=== PATIENT | male | born 1990 | race Caucasian/White ===

== ENCOUNTER → 2021-08-20 09:27 | Outpatient (CLI) | payer OTHER, SELFPAY ==
[2021-08-20 12:00] LABS: COVID19 -Nasal RAPID Negative (Negative)
== END ==
PROVIDERS: PCP Emergency Medicine; Visit Provider Nurse Practitioner Family
DX: Z20.822 Contact with and (suspected) exposure to COVID-19 (principal); Z01.812 Encounter for preprocedural laboratory examination
CPT/HCPCS: 87635

== ENCOUNTER 2021-08-22 10:36 | Day surgery (SDC) | payer OTHER, SELFPAY ==
[2021-08-15 13:44] VITALS: BMI 28.7
[2021-08-22] VITALS (13 sets, daily range): BP systolic 113–149; BP diastolic 62–104; PULSE 82–107; RESP 10–18; TEMP 36.3–38; O2SAT 95–98; BMI 28.7
--- NOTE | 2021-08-22 | DI.RAD.S_ITS ---
PROCEDURE: XR LUMBAR SPINE 2-3V INDICATIONS: L5-S1 TLIF TECHNIQUE: Two intraoperative fluoroscopic spot views of the lumbar spine were acquired. COMPARISON: [facility], , L-SPINE 2-3 VIEWS, 09/07/2015, 15:33. FINDINGS: Bilateral transpedicular screws and disc spacer are in place at the L5-S1 level. AP and transverse alignment appear normal. IMPRESSION: 1. Expected fluoroscopic appearance of L5-S1 TLIF. Dictated by: Erum Floyd M.D. on 08/22/2021 at 15:14 Approved by: Erum Floyd M.D. on 08/22/2021 at 15:16
[2021-08-22] MEDS: LACTATED RINGERS 1,000 ML 42 ML IV ×2 (11:23→12:57)
--- NOTE | 2021-08-22 11:46 | PM.PREOP ---
Pre-operative Note COVID-19 COVID-19 status: Negative Result date/Date tested (Pos, Neg/Pending): 08/20/21 Interval Note History & Physical reviewed/Exam performed by Physician: Yes Changes to H&P: No
[2021-08-22] MEDS: CEFAZOLIN 1 GM VIAL 2 GM IV ×2 (12:30→21:18)
--- NOTE | 2021-08-22 12:54 | SUR.OPER ---
Prone on spine table, head in foam head support, padded chest and pelvic supports, gel pad at knees, lower legs supported by pillows; nipples, genitalia and toes free of pressure, arms secured on foam padded arm boards at <90 degrees abduction. Tape over blanket at thigh secured to table.
[2021-08-22] MEDS: BUPIVACAINE 0.25% (PF) 30 ML, EPINEPHrine 0.3 MG INJ (12:58)
[2021-08-22] MEDS: BUPIVACAINE LIPOSOME 266 MG/20 ML VIAL INJ (12:59)
--- NOTE | 2021-08-22 15:20 | PM.OP.1 ---
Operative Date/Time/Diagnoses Date of procedure: 08/22/21 Time of procedure: 12:20 Pre-op diagnosis: 1. L5-S1 recurrent disc herniation with radiculopathy 2. L5-S1 spinal stenosis with radiculopathy Post-op diagnosis: same Procedure & Clinicians Procedure: 1. L5-S1 Postero-lateral and posterior interbody fusion 2. L5-S1 interbody cage placement. 3. L5-S1 decompressive laminectomy with bilateral facetecomies 4. L5-S1 Posterior non-segmental instrumentation 5. [place] of bone marrow from iliac crest 6. Utilization of microsurgical technique and operating microscope Same procedure as scheduled: Yes Indications: Patient has been having chronic back pain and worsening lumbar radiculopathy. Patient had prior L5-S1 right microdiskectomy has done well until recently. Patient has recurring radiculopathy secondary to a large recurrent disc herniation L5-S1 level. Patient failed multiple conservative management with worsening pain weakness and numbness in his lower extremity. Patient has been having difficulty performing activity of daily living. After discussing risks benefits of treatment options, patient elected proceed with surgery. Surgeon: Tisha Monreal Manager Clinical Pharmacy: Mere Watson Click Yes if Unassisted: No Anesthesia Type: General Operative Notes Closure Type: primary Specimen(s): none sent Prosthetic devices, grafts, tissues, transplants, or devices: Globus revolve screws, Rise cage Applied: implant(s) Estimated Blood Loss (mL): 50 Blood products transfused: none Procedure in detail: Patient was seen in the preoperative area. Risks and benefits of the surgery was discussed with the patient. Informed consent was obtained from the patient and placed in the chart. Surgical site was marked. Patient was taken to the operative room. General anesthesia was administered. Prophylactic antibiotic was given to the patient less than 30 min before the incision was made. Patient was placed into a prone position on the Stevenson table. Patient's back was then prepped and draped in the sterile fashion. Time-out was performed at this time. Using AP and lateral C-arm imaging the interval between L5-S1 was identified and marked on patient's back. A 2 inch incision 2 in from midline was made on the right side first. The fascia was incised in line with skin incision. Globus MARS retractors was placed inside the incision and docked onto the L5 lamina. Using microsurgical technique and operating microscope, a L5 laminectomy and L5-S1 facetectomy was performed using a [place] rongeur. Patient was found have severe neural foraminal stenosis and required a total facetectomy for decompression which rendered L5-S1 grossly unstable and required a fusion procedure at the same time. The disc space at L5-S1 was identified. And a total diskectomy was performed at L5-S1 level. Patient was found have a large recurrent disc herniation causing significant right-sided lateral recess/foraminal stenosis as well as significant central stenosis. The stenosis was fully decompressed after a total diskectomy was completed. The endplates were decorticated using a rasp and shaver. The total diskectomy and decortication was performed at L5-S1 level in order to to accomplish a L5-S1 fusion. The local bone from the laminectomy and facetectomy was saved for local bone grafting. After the total diskectomy and decortication was completed, Trifecta bone graft material was combined with local bone that was harvested earlier. At this time, a separate skin is incision was made over the iliac crest. A Jamshidi needle was inserted into the iliac crest through a separate skin incision. 5 cc of bone marrow aspiration was obtained through the separate skin incision using a Jamshidi needle from the iliac crest. The bone marrow aspiration was combined with local bone and the Trifecta bone grafting material. The bone grafting material was placed into the L5-S1 interbody space along with a expandable cage. The cage was expanded to its maximum height using the torque limiting screwdriver. At this time a mirror image incision was made on the left side. The fascia was incised in line with the skin incision. Globus MARS retractor was inserted and docked onto the L5-S1 posterolateral gutter. Using the power drill, posterior-lateral decortication was performed at L5-S1 level until bleeding cortical bone was identified. The remaining bone grafting material was placed into the L5-S1 posterior lateral gutter he order to accomplish posterolateral fusion at the L5-S1 level. Using the double C-arm technique, pedicle screws were placed into the L5-S1 pedicles bilaterally. This was done by placing the Jamshidi needle into the pedicles, then placing the guidewires over the Jamshidi needle, and finally placing the cannulated screws over the guidewires bilaterally. After the pedicle screws were placed, 2 titanium rods was locked into the heads of the pedicle screws using locking caps and torque limiting screwdriver. After all the hardware was placed, and confirmed with AP and lateral C-arm imaging, the wound was then irrigated with sterile normal saline and packed with Ray-Sunday gauze for 3 min to accomplish hemostasis. After the gauze was removed the deep fascia was closed with #1 Vicryl suture. The subcutaneous layer was closed with 2-0 Vicryl. The skin was closed with skin uli. Patient tolerated the procedure well. There were no complications. Complications: none Post-operative Condition: stable Disposition: PACU Plan for aftercare: Admit to inpatient hospital
[2021-08-22] MEDS: OXYCODONE/ACETAMINOPHEN 5/325 TABLET 1 TAB PO ×2 (15:38→16:12)
[2021-08-22] MEDS: fentaNYL 100 MCG/2 ML INJ IV (15:52)
[2021-08-22] MEDS: SODIUM CHLORIDE 0.9% 1,000 ML 100 ML IV (17:13)
[2021-08-22] MEDS: OXYCODONE IR 5 MG TABLET 10 MG PO ×2 (17:57→21:17)
[2021-08-22] MEDS: hydrOXYzine pamoate 25 MG CAPSULE PO ×2 (17:57→21:17)
[2021-08-22] MEDS: DOCUSATE 100 MG CAPSULE PO (21:18)
[2021-08-22] MEDS: SENNOSIDES 8.6 MG TABLET 17.2 MG PO (21:18)
[2021-08-23 01:09] VITALS: BP 109/54; PULSE 104; RESP 17; TEMP 37.5; O2SAT 96
[2021-08-23] MEDS: ACETAMINOPHEN 325 MG TABLET 650 MG PO (05:02)
[2021-08-23] MEDS: CEFAZOLIN 1 GM VIAL 2 GM IV (05:02)
[2021-08-23] MEDS: OXYCODONE IR 5 MG TABLET 10 MG PO ×2 (05:03→10:19)
[2021-08-23 05:05] VITALS: BP 107/55; PULSE 101; RESP 16; TEMP 37.5; O2SAT 96
--- NOTE | 2021-08-23 09:13 | PT.IIE ---
Current Diagnoses Spinal stenosis, lumbar region without neurogenic claudication (08/22/21) Other intervertebral disc displacement, lumbar region (08/22/21) Surgery Performed Operation Date: 08/22/21 12:15 Actual Procedures p L5-S1 TLIF(Not Applicable) - Tisha Monreal MD Medical History (Last Updated 08/15/21 @ 14:04 by Patti Irving RN) Spinal stenosis of lumbar region without neurogenic claudication Physical Therapy Inpatient Evaluation/Re-Eval M1 PT/OT-IP Prior Functional Status Start: 08/23/21 12:25 Freq: NEEDED Status: Discharge Protocol: Document 08/23/21 12:27 [facility] (Rec: 08/23/21 12:45 [facility] [id number]) Medical Review Prior Functional Status Communication Independent Mobility and Gait Pt did not use a device to ambulate with. Activities of Daily Living and IADL's Pt states do to his pain would take extra time to do his ADl and IADl needs. Social History Household Members spouse,children Living Arrangements Apartment/Condo Number of Stairs To Enter/Railing? No steps form the back on the town home. Home Environment Standard Height Toilet,Tub/ Shower Home Equipment Hand Held Shower Employment Status Active Duty Additional Social History Comment Pt's looking to brain picker a FWW and tub bench for the pt. M1 PT/OT-IP Prior Functional Status Start: 08/23/21 14:15 Freq: NEEDED Status: Active Protocol: Document 08/23/21 09:13 AB (Rec: 08/23/21 14:23 AB [id number]) Medical Review Prior Functional Status Medical History Reviewed Yes Communication able to make needs known Mobility and Gait pt stated that he is independent with all mobilities and ambulation withotu AD Social History Household Members spouse,children Living Arrangements Apartment/Condo Number of Floors (Floors) Two Floors Number of Stairs To Enter/Railing? no steps to enter; 30 steps with L rail to get to bedroom level Home Environment Standard Height Toilet,Tub/ Shower Home Equipment Hand Held Shower Employment Status Active Duty M2 PT-IP Current Condition Start: 08/23/21 14:15 Freq: NEEDED Status: Active Protocol: Document 08/23/21 09:13 AB (Rec: 08/23/21 14:23 AB [id number]) Physical Therapy Current Condition Current Condition Evaluation Date 08/23/21 Treatment Diagnosis s/p L5S1 TLIF; difficulty in walking Onset Date 08/22/21 M3 PT-IP Subjective Start: 08/23/21 14:15 Freq: NEEDED Status: Active Protocol: Document 08/23/21 09:13 AB (Rec: 08/23/21 14:23 AB [id number]) Subjective Physical Therapy Visit Type Type Initial Evaluation Visit Start Time 09:13 Visit Stop Time 10:30 Total Visit Minutes 77 Number of INSURANCE SPECIALIST Visits 0 Physical Therapy Visit Comments Patient Comments agreeable to do PT Therapy Pain Assessment Pain When Pain Assessed At Rest Pain Present Pain Present Pain Reported Location Back Intensity 4 Scale Used increases to 7/10 with mobility Pain Management Techniques Apply Cold,Modification of Treatment,Re-positioning, Timing of Activity with Medications M4 PT-IP Mobility and Gait Start: 08/23/21 14:15 Freq: NEEDED Status: Active Protocol: Document 08/23/21 09:13 AB (Rec: 08/23/21 14:23 AB [id number]) PT-Bed Mobility Assessment Rolling Type of Rolling Log Rolling Level of Assist Standby Assistance Supine to Sit Supine to Sit Standby Assistance Sit to Supine Sit to Supine Standby Assistance PT-Transfer Assessment Sit to and From Stand Sit to and from Stand Standby Assistance,Contact Guard Assistance,1 Person Assistance,Use of Upper Extremities Equipment Transfer Assistive Device Gait Belt,Front Wheeled Walker Orthotic/Prosthetic Devices or Brace: No Transfers Transfer Destination Chair Transfer Technique ambulated Transfer Ability Level of Assist Standby Assistance,Contact Guard Assistance,Use of Upper Extremities Comments Mobility Comments educated pt on back precautions and log roll bed mobility. completed supine to sit SBA and ambulated in room using FWW CGA. agreed to do stairs. ambulated out in the hallway using FWW initially CGA but after a few feet SBA. completed up/down steps holding on to L rail with B hands CGA. completed 2 sets. pt ambulated back to his room using FWW SBA. demonstrated sit to supine log roll SBA. ambulated to the chair using FWW SBA. positioned pt on the chair call light and table placed within reach. ice pack provided. Gait Assessment Gait Gait Assistance Required: Standby Assistance,Contact Guard Assist Distance (Feet) 125 Able to Maintain Weight Bearing Status Yes During Gait Assistive Devices Assistive Device Gait Belt,Front Wheeled Walker Orthotic/Prosthetic Devices or Brace: No Gait Deviations General Gait Pattern Decreased Stride Length, Decreased Feet Clearance Factors Limiting Gait Function Factors Limiting Gait Function Decreased Activity Tolerance, Decreased Strength,Limited Range of Motion,Pain,Poor Balance Stair Climbing Assessment Evaluation Level of Assist On Stairs Contact Guard Assistance Devices Stair Climbing Assistive Devices Left Railing Technique/Endurance Stair Climbing Direction Ascend and Descend Stair Climbing Technique Step to Step Number of Steps Climbed 3 Query Text: Stair Climbing Set # Repetitions (reps) 2 PT-Balance Assessment Sitting Balance and Reactions Static Sitting Balance Ability Good Dynamic Sitting Balance Ability Good Standing Balance and Reactions Static Standing Balance Ability Fair Dynamic Standing Balance Ability Fair Device Used FWW M5 PT-IP Objective Assessments Start: 08/23/21 14:15 Freq: NEEDED Status: Active Protocol: Document 08/23/21 09:13 AB (Rec: 08/23/21 14:23 AB [id number]) Orientation Orientation/Cognition Level of Alertness Alert Orientation Name,Age,Birthday,Month,Date, Year,Day of Week,Place, Situation Language Function Ability No Deficits Noted Safety Awareness Understands Safety Issues Memory Description No Deficits Noted Gross Range of Motion Lower Extremity ROM Assessment Within Functional Limits Strength Lower Extremity Strength Assessment Left Impaired Hip 4/5 Knee 4-/5 Coordination Assessment Gross Coordination Gross Coordination WNL Sensation Assessment Sensation Gross Sensation WNL Muscle Tone Muscle Tone WNL Yes M6 PT-IP Treatment Start: 08/23/21 14:15 Freq: NEEDED Status: Active Protocol: Document 08/23/21 09:13 AB (Rec: 08/23/21 14:23 AB [email or web address]) Physical Therapy Treatment Education Education Provided Precautions,Weight Bearing Status,Post-Op Packet,Safety M7 PT-IP Assessment and Plan Start: 08/23/21 14:15 Freq: NEEDED Status: Active Protocol: Document 08/23/21 09:13 AB (Rec: 08/23/21 14:23 AB [email or web address]) PT Summary Assessment and Plan Potential Rehabilitation Potential Good Status of Condition at Evaluation Stable Summary Impairments Pain Assessment Summary pt requiring SBA to CGA with mobility and plans to go home with spouse to assist him. Pt stated that spouse will get a FWW and tub transfer bench for home use. pt may go home when medically stable. Goals Bed Mobility Goal Independent Transfer Goal Independent,Front Wheeled Walker Gait Goal Independent,Front Wheel Walker Gait Distance 250 Other Goals up/down 30 step L rail mod i Days to Meet Goals 5 Frequency of Treatment Frequency Of Treatment Twice a Day Treatment Plan Physical Therapy Treatment Plan Bed Mobility Training,Transfer Training,Gait Training, Therapeutic Exercise,Balance Retraining,Post Op Education, Discharge Planning,Hot or Cold Pack,Neuromuscular Re-ed, Coordination Retraining,Manual Therapy Precautions Lumbar Precautions Log Roll,No Twisting,Limit Bending,Lifting Restriction of 10 lbs,Gait Belt above Incisional Area Recommendations To Nursing Amount of Assist Needed 1 Person Assist Discharge Recommendations PT Discharge Recommendations Home with Assistance Equipment Needed for Home Before FWW Discharge Transportation Needs at Discharge Private Vehicle
[2021-08-23] MEDS: DOCUSATE 100 MG CAPSULE PO (09:50)
[2021-08-23] MEDS: hydrOXYzine pamoate 25 MG CAPSULE PO (09:50)
--- NOTE | 2021-08-23 10:26 | P.DS_ITS ---
History of Present Illness History of Present Illness Date Patient Seen: 08/23/21 Time Patient Seen: 10:26 Chief complaint: Back pain Narrative: Patient's pain is moderate to severe. Denies fever or chills. No nausea or vomiting. Patient just completed physical therapy. Patient states his is home and available to assist him. Discharge Providers Provider Discharge Date: 08/23/21 Primary care physician: Cash Hargrove PA-C Consults: 08/22/21 16:19 Consult to Occupational Therapy Evaluate & Treat Comment: Physician Instructions: Evaluate and treat Consult to Physical Therapy Evaluate & Treat Comment: Physician Instructions: Evaluate and Treat Discharge provider: Prasad Marinelli PA-C Summary Hospital Course Discharge Diagnosis: 1. L5-S1 recurrent disc herniation with radiculopathy 2. L5-S1 spinal stenosis with radiculopathy Hospital Course: 1. L5-S1 Postero-lateral and posterior interbody fusion 2. L5-S1 interbody cage placement. 3. L5-S1 decompressive laminectomy with bilateral facetecomies 4. L5-S1 Posterior non-segmental instrumentation 5. [place] of bone marrow from iliac crest 6. Utilization of microsurgical technique and operating microscope Same procedure as scheduled: Yes Indications: Patient has been having chronic back pain and worsening lumbar radiculopathy. Patient had prior L5-S1 right microdiskectomy has done well until recently.? Patient has recurring radiculopathy secondary to a large recurrent disc herniation L5-S1 level. Patient failed multiple conservative management with worsening pain weakness and numbness in his lower extremity.? Patient has been having difficulty performing activity of daily living.? After discussing risks benefits of treatment options, patient elected proceed with surgery. Surgeon: Tisha Monreal Weatherization Administrator: Mere Watson Click Yes if Unassisted: No Anesthesia Type: General Operative Notes Closure Type: primary Specimen(s): none sent Prosthetic devices, grafts, tissues, transplants, or devices: Globus revolve screws, Rise cage Applied: implant(s) Estimated Blood Loss (mL): 50 Blood products transfused: none Patient was admitted to the hospital yesterday for the above-mentioned procedure. Patient consented to the same. Patient taken operating room yesterday and back in his room recovering well as in stable condition. Patient progressing as expected. Patient did well with physical therapy. Patient will be discharged home today in stable condition. Exam Vital Signs (past 8 hours): - 08/23/21 05:05 Temperature 99.5 F Pulse Rate 101 H Respiratory Rate 16 Blood Pressure 107/55 L Pulse Oximetry 96 Oxygen Delivery Method Room Air Oxygen Flow Rate 0 Narrative Exam Narrative: 31-year-old male resting comfortably in bedside chair in no apparent distress. Scant drainage on the dressing otherwise intact. Motor functions intact bilateral lower extremities. Sensation grossly intact to light touch bilateral lower extremities. [facility] Medical History (Updated 08/15/21 @ 14:04 by Patti Irving RN) Spinal stenosis of lumbar region without neurogenic claudication Surgical History (Updated 08/15/21 @ 14:03 by Patti Irving RN) History of photorefractive keratectomy (PRK) (2012) Hx of microdiscectomy (09/07/15) Social History household members: spouse and children Smoking Status: Former smoker alcohol intake: current Discharge Assessment & Plan Assessment and Plan Assessment: Stable Plan of Treatment: Limit bending, twisting, lifting Keep dressing clean and dry Discharge home today in stable condition Discharge Plan Discharge Plan Patient Disposition: Home Discharge orders & Medications Discharge Orders: Discharge (Order); Ordered 08/23/21 Ordered By: Prasad Marinelli Prescriptions: New acetaminophen 325 mg Tablet 650 mg PO Q6HR PRN (Reason: Pain, Mild (1-3)) Qty: 60 RF: 0 docusate sodium 100 mg Capsule 100 mg PO BID Qty: 20 RF: 0 oxycodone 5 mg Tablet 10 mg PO Q3HR PRN (Reason: Pain, Severe (7-10)) Qty: 40 RF: 0 hydroxyzine pamoate 25 mg Capsule 25 mg PO Q4HR PRN (Reason: Nausea And Vomiting) Qty: 30 RF: 0 Continued cyclobenzaprine 10 mg Tablet 10 mg PO TID PRN (Reason: Muscle Spasm) RF: 0 Discontinued meloxicam 15 mg Tablet 15 mg PO DAILY RF: 0 Follow up/Referrals: Cash Hargrove PA-C [Primary Care Provider] - Tisha Monreal MD [Physician] - (Two weeks) Diet/Activity/Treatments Diet: Diet as Tolerated Activity: Limit bending, twisting, lifting Cold/Heat Therapy: Ice to low back as needed Skin/Wound/Dressing Care Report to your healthcare provider any signs of infection, such as:: chills, fever, increased pain, unusual drainage and unusual redness Dressing: Keep dressing clean and dry Visit Report/Discharge Packet Instructions: DI for Transforaminal Lumbar Interbody Fusion Stand Alone Forms: Surgery Discharge Discharge Data Primary Care Provider: Cash Hargrove Attending Provider: Tisha Monreal VTE Deep Vein Thrombosis/Pulmonary Embolism Present on Admission: No
--- NOTE | 2021-08-23 11:00 | OT.IP.EVAL ---
Current Diagnoses Spinal stenosis, lumbar region without neurogenic claudication (08/22/21) Other intervertebral disc displacement, lumbar region (08/22/21) Surgery Performed Operation Date: 08/22/21 12:15 Actual Procedures p L5-S1 TLIF(Not Applicable) - Tisha Monreal MD Past Medical History (Last Updated 08/15/21 @ 14:04 by Patti Irvnig RN) History of photorefractive keratectomy (PRK) (2012) Hx of microdiscectomy (09/07/15) Spinal stenosis of lumbar region without neurogenic claudication Surgical History (Last Updated 08/15/21 @ 14:03 by Patti Irving RN) History of photorefractive keratectomy (PRK) (2012) Hx of microdiscectomy (09/07/15) Occupational Therapy Inpatient Evaluation/Re-Eval M1 PT/OT-IP Prior Functional Status Start: 08/23/21 12:25 Freq: NEEDED Status: Discharge Protocol: Document 08/23/21 12:27 [facility] (Rec: 08/23/21 12:45 [facility] [id number]) Medical Review Prior Functional Status Communication Independent Mobility and Gait Pt did not use a device to ambulate with. Activities of Daily Living and IADL's Pt states due to pain would take extra time to do his ADl and IADl needs. Social History Household Members spouse,children Living Arrangements Apartment/Condo Number of Stairs To Enter/Railing? No steps form the back on the town home. 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 M2 OT-IP Current Condition Start: 08/23/21 12:25 Freq: Status: Discharge Protocol: Document 08/23/21 12:27 [facility] (Rec: 08/23/21 12:45 [facility] [id number]) Occupational Therapy Current Condition Current Condition Evaluation Date 08/23/21 Treatment Diagnosis S/P L5-S1 TLIF Diagnosis Onset Date 08/22/21 Post Operative Precautions Lumbar Precautions Log Roll,No Twisting,Limit Bending,Lifting Restriction of 10 lbs,Gait Belt above Incisional Area M3 OT- IP Subjective and Pain Start: 08/23/21 12:25 Freq: Status: Discharge Protocol: Document 08/23/21 12:27 [facility] (Rec: 08/23/21 12:45 [facility] [id number]) OT- Subjective Occupational Therapy Visit Type Type Initial Evaluation Visit Start Time 11:00 Visit Stop Time 11:23 Total Visit Minutes 23 Occupational Therapy Visit Comments Patient Comments Pt agreed to do OT eval and get dressed as being discharged today. Pt not wanting to shower. Patient/Caregiver Goals TO go home. OT Pain Assessment Pain When Pain Assessed At Rest Pain Present Pain Present Pain Reported Location Back Intensity 5 Scale Used Numeric (0 - 10) M4 OT- IP ADL's Start: 08/23/21 12:25 Freq: Status: Discharge Protocol: Document 08/23/21 12:27 [facility] (Rec: 08/23/21 12:45 [facility] [id number]) OT TYH-Vzho-Xqjucoh General Evaluation Self-Feeding Ability Independent OT ADL-Grooming General Evaluation Grooming Ability Independent OT ADL-Oral Care General Eval Oral Care Ability Standby Assistance Comments Oral Care Comments Educated best to spit into a cup to best follow his back precautions. Otherwise hinge at his hips to lean while keeping his back straight to spit into the snk. OT ADL-Dressing General Eval Upper Body Dressing Ability Independent Lower Body Dressing Ability Minimal Assistance Areas Needing Assistance Shoes Comments OT Dressing Comments Able to issue LB dressing equipment and pt able to practice how to use items and to abby his left leg first as it does not move as well as his right leg. Therefore to dress the weak side first and take it out last. Pt able to demonstrate good safety for dressing needs. OT ADL-Toileting Comments OT Toileting Comments Pt able to simulate leaning to the side to wipe. Also educated easier to use wet ones or stand while holding onto the FWW to wipe can be helpful. Pt states his will be there to assist. OT ADL-Bathing Comments OT Bathing Comments Pt wanting to shower at home and looking into getting a tub bench. M5 OT- IP IADL's Start: 08/23/21 12:25 Freq: Status: Discharge Protocol: Document 08/23/21 12:27 [facility] (Rec: 08/23/21 12:45 [facility] [id number]) OT-Instrumental Activities of Daily Living Deficits IADL Deficits Identified Deficits Home Safety Awareness Awareness of Need for Assistance at Home Good Awareness Ability to Problem Solve Emergency Able to Problem Solve Situations Home Safety Comments Pt's to be home to assist and provide supervision for the pt as needed. Pt is aware that he will not be able to crab picker his 19-month old at this time. M6 OT- IP Functional Cognition Start: 08/23/21 12:25 Freq: Status: Discharge Protocol: Document 08/23/21 12:27 [facility] (Rec: 08/23/21 12:45 [facility] [id number]) Cognitive Factors Limiting Selfcare Function Cognitive Ability Level of Alertness Alert Patient Orientation Name,Age,Birthday,Month,Date, Year,Day of Week,Place, Situation Ability to Follow Commands Able to Follow Multi-Step Commands Memory Description No Deficits Noted Safety Awareness No Deficits Noted Problem Solving Ability No deficits Noted Cognitive Comments Cognitive Assessment Comments Pt intact for cognitive needs and just needing reminders to go slow and think things through for his back precautions. OT- Vision and Hearing OT- Hearing Assessment OT- Hearing Assessment WFL OT- Vision Assessment Visual Acuity WFL M7 OT- IP Mobility and Balance Start: 08/23/21 12:25 Freq: Status: Discharge Protocol: Document 08/23/21 12:27 [facility] (Rec: 08/23/21 12:45 [facility] [id number]) OT-Transfer Assessment Sit to and From Stand Sit to and from Stand Contact Guard Assistance Transfers Transfer Ability Standby Assistance Technique Transfer Destination Chair Devices Transfer Assistive Devices Gait Belt,Front Wheeled Walker Comments Mobility Comments Pt able to stand with CGA and educated not to stop during his transitions. Pt is SBA with FWW. OT- Gait Assessment Comments Gait Ability Comments SBA with FWW. OT- Balance Assessment Sitting Balance and Reactions Static Sitting Balance Ability Normal Dynamic Sitting Balance Ability Normal Standing Balance and Reactions Static Standing Balance Ability Good Dynamic Standing Balance Ability Fair M8 OT- IP Objective Assessments Start: 08/23/21 12:25 Freq: Status: Discharge Protocol: Document 08/23/21 12:27 [facility] (Rec: 08/23/21 12:45 [facility] [id number]) OT-Muscle Tone Assessment Muscle Tone WNL Yes M9 OT- IP Assessment and Plan Start: 08/23/21 12:25 Freq: Status: Discharge Protocol: Document 08/23/21 12:27 [facility] (Rec: 08/23/21 12:45 [facility] [id number]) OT Summary Assessment and Plan Potential Rehabilitation Potential Excellent Analytic Complexity at Evaluation Low Summary OT Impairments Pain,Functional Mobility, Dressing,Toileting,Bathing Progress Towards Goals Progressing Toward Goals Assessment Summary Pt low complexity and main barrier are pain ,now needing assist for mobility and ADl needs. Pt has a supportive to assist pt at home. Pt able to show good demonstration and safety for LB dressing equipment. Pt also planning on getting BSC and tub bench for home use. Pt to go home when medically stable . Goals Dressing Goal Independent Toileting Goal Independent Bathing Goal Independent Toilet Transfer Goal Independent Shower Transfer Goal Independent Patient/Caregiver Education Goal Demonstrate Post-Op Precautions Days to Meet Goals 5 Frequency of Treatment Frequency Of Treatment Once a Day Treatment Plan OT Treatment Plan ADL Training,Functional Mobility,Patient/Family Education,Discharge Planning Discharge Recommendations OT Discharge Recommendations Home with Assistance Home Equipment Needs FWW, tub bench Transportation Needs at Discharge Private Vehicle
[2021-08-23 12:17] VITALS: BP 121/70; PULSE 99; RESP 16; TEMP 36.8; O2SAT 97
--- NOTE | 2021-08-23 12:25 | PC.NURSE ---
Assumed care of pt at 0700. Pt resting during shift report. Awakens to voice. A/Ox4. P.t. and O.T. eval completed. PA d/c to home. Drsg changed. I.S. given with instructions per use. Discharge education provided. Pt verbalized understanding of all. IV removed. Escorted to private vehicle via w/c. Pt left in stable condition with all personal belongings.
== END 2021-08-23 12:29 | disposition home or self-care (01) ==
LOC: OR 10:39 → AC 10:39
PROVIDERS: PCP Physician Assistant; Referring Provider Orthopaedic Surgery Orthopaedic Surgery of the Spine; Visit Provider Orthopaedic Surgery Orthopaedic Surgery of the Spine
PROC: (CPT 22633; principal; 2021-08-22 12:15)
DX: M48.061 Spinal stenosis, lumbar region without neurogenic claudication (principal); M54.16 Radiculopathy, lumbar region; M51.26 Other intervertebral disc displacement, lumbar region
CPT/HCPCS: 22633; 20939; 63047; 22840; 22853; 72100; 76000; 82962; 97116; 97161; 97165; 97530; 97535; C1776; C9290; J0171; J0330; J0690; J1100; J1170; J2405; J2704; J3010